=== PATIENT | female | born 1990 | race Caucasian/White ===

== ENCOUNTER → 2016-07-28 | Outpatient (CLI) | payer MEDICARE, OTHER ==
--- NOTE | 2016-07-28 09:41 | CT ---
EXAMINATION TYPE: CT brain wo con DATE OF EXAM: 07/28/2016 9:21 AM COMPARISON: NONE HISTORY: Headache with sivion changes, near syncopal episode CT DLP: 934.[address] of the brain was performed. The ventricles, basal cisterns and sulci overlying the cerebral convexities demonstrate a normal appe arance. There is no evidence for intracranial hemorrhage or sulcal effacement. No mass effects are seen. Osseous calvarium is intact. If symptoms persist consider MRI as clinically warranted. IMPRESSION: 1. No acute intracranial process is seen at this time.
--- NOTE | 2016-08-01 08:16 | EEG ---
DATE OF SERVICE: 07/28/2016 REASON FOR TESTING: Syncope. AGE: 26Y DESCRIPTION OF THE PROCEDURE: This EEG was performed using a 21-channel digital electroencephalograph, following the international 10 to 20 system. DESCRIPTION OF THE RECORDING: From the beginning of the tracing, and with the patient's eyes closed, the background rhythm was mostly consisting of 9 to 10 Hz alpha frequency in the posterior occipital leads. No obvious asymmetry is seen. Photic stimulation was performed with a good driving response seen. No pathological waves were elicited. Hyperventilation was performed with a mild buildup of amplitude seen. Again, no pathological waves were elicited. Occasional movement artifacts are seen. The patient remains awake throughout the tracing. No epileptiform discharges were seen. Her EKG lead showed a regular rate and rhythm. INTERPRETATION: This awake EEG can be considered within normal limits. There was no asymmetry seen. No epileptiform discharges were noticed. The absence of epileptiform discharges does not rule out the diagnosis of epilepsy, therefore, clinical correlation is recommended.
== END | disposition home or self-care (01) ==
LOC: RADCTMAIN 08:23
PROVIDERS: ATTEND Family Medicine
DX: R51 Headache (principal); R55 Syncope and collapse; H53.9 Unspecified visual disturbance
CPT/HCPCS: 70450; 95816

== ENCOUNTER → 2016-08-28 | Outpatient (CLI) | payer MEDICARE, OTHER | END | disposition home or self-care (01) | LOC: LABWHC1 08:21 | PROVIDERS: ATTEND Family Medicine | DX: Z53.9 Procedure and treatment not carried out, unspecified reason (principal) ==

== ENCOUNTER → 2018-09-02 | Outpatient (CLI) | payer MEDICARE, OTHER ==
[2018-09-02 12:39] LABS: HCT 41.5 % (34.0-46.0); HGB 13.3 gm/dL (11.4-16.0); MCH 27.4 pg (25.0-35.0); MCHC 31.9 g/dL (31.0-37.0); MCV 85.9 fL (80.0-100.0); Mean Platelet Volume 6.7; Platelet Count 259 k/uL (150-450); RBC 4.83 m/uL (3.80-5.40); RDW 13.8 % (11.5-15.5); WBC 13.1 k/uL (3.8-10.6)
[2018-09-02 14:46] LABS: Erythrocyte Sedimentation Rate 16 mm/hr (0-20)
[2018-09-02 18:59] LABS: Albumin 4.1 g/dL (3.80-4.90); Albumin/Globulin Ratio 1.58 (1.60-3.17); Anion Gap 4.9 mmol/L (4.00-12.00); C Reactive Protein 1.5 mg/dL (0.0-0.8); Calcium 9.1 mg/dL (8.7-10.3); Carbon Dioxide 28.1 mmol/L (21.6-31.8); Globulin 2.6 g/dL (1.6-3.3); Potassium 4.3 mmol/L (3.5-5.5); Total Bilirubin 0.3 mg/dL (0.3-1.2); Total Protein 6.7 g/dL (6.2-8.2)
[2018-09-02 19:02] LABS: Rheumatoid Factor <4 IU/mL (0-15)
[2018-09-02 19:28] LABS: T4, Free (Free Thyroxine) 0.8 ng/dL (0.80-1.80)
== END ==
LOC: LABWHC1 11:54
PROVIDERS: ATTEND Physician Assistant
DX: M13.0 Polyarthritis, unspecified (principal); M79.10 Myalgia, unspecified site
CPT/HCPCS: 36415; 80053; 82085; 82550; 82607; 84207; 84439; 84443; 84481; 85027; 85652; 86038; 86140; 86431

== ENCOUNTER → 2019-04-15 | Outpatient (CLI) | payer MEDICARE, OTHER ==
--- NOTE | 2019-04-15 13:19 | MR ---
EXAMINATION TYPE: MR lumbar spine wo con DATE OF EXAM: 04/15/2019 COMPARISON: CT abdomen and pelvis March 04, 2014 HISTORY: Lumbago per order. Back pain for 5 years per patient. TECHNIQUE: Multiplanar, multisequence imaging of the lumbar spine is performed without IV contrast. FINDINGS: Sagittal images of the lumbar spine show vertebral body heights and alignment to appear sat isfactory. The intervertebral discs demonstrate normal heights and hydration. No suspicious posterior disc herniation on sagittal images. The conus medullaris is normal in position and signal ending mi d L1 level. The bone marrow signal intensity is within normal limits. No significant spurring. Axial images show no focal disc disease, or facet degenerative change at any lumbar level. There is no spinal canal stenosis, neural foraminal narrowing, or evidence of nerve root compromise. IMPRESSION: Fairly unremarkable study.
== END | disposition home or self-care (01) ==
LOC: RADMRIMAIN 12:43
PROVIDERS: ATTEND Psychiatry & Neurology Neurology
DX: M54.5 Low back pain (principal); Z91.040 Latex allergy status
CPT/HCPCS: 72148

== ENCOUNTER → 2020-11-03 | Outpatient (CLI) | payer MEDICARE, OTHER ==
--- NOTE | 2020-11-03 15:08 | XR ---
Right ankle HISTORY: Trauma and pain 3 views of the right ankle There is soft tissue swelling present. Bone mineralization, joint spaces and alignment are maintained . Proximal fifth metatarsal was not included on the exam. Plantar calcaneal spur is present. impression: Soft tissue swelling, limitations as described. Additional views will be obtained at no a dditional charge to the patient should it be requested.
== END | disposition home or self-care (01) ==
LOC: RADXRMAIN 12:52
PROVIDERS: ATTEND Family Medicine
DX: M79.89 Other specified soft tissue disorders (principal)

== ENCOUNTER → 2021-03-22 | Outpatient (CLI) | payer MEDICARE, OTHER ==
--- NOTE | 2021-03-22 12:42 | MR ---
EXAMINATION TYPE: MR brain wo/w con DATE OF EXAM: 03/22/2021 COMPARISON: CT brain July 28, 2016 HISTORY: Left arm tremor, dizziness, memory loss; rule out tumor. TECHNIQUE: Multiplanar, multisequence images of the brain and brainstem is performed without and with IV contras t, utilizing 9 mL intravenous Gadavist . FINDINGS: Diffusion weighted images demonstrate no evidence of a recent infarct or other diffusion ab normality. There is no extra-axial fluid collection or significant white matter signal abnormality. The ventricular system and cisternal spaces are normal in size and appearance. The brain volume is age appropriate. Midline structures demonstrate normal morphology. The craniocervical junction appears within normal limits. Post contrast images demonstrate no abnormal enhancement. The dural venous sinuses appear pa tent. The visualized sinuses are clear and the globes are intact. IMPRESSION: Unremarkable study.
== END | disposition home or self-care (01) ==
LOC: RADMRIMAIN 11:34
PROVIDERS: ATTEND Psychiatry & Neurology Neurology
DX: C71.9 Malignant neoplasm of brain, unspecified (principal)
CPT/HCPCS: 70553; A9585

== ENCOUNTER → 2021-12-30 | Outpatient (CLI) | payer MEDICARE, OTHER ==
--- NOTE | 2021-12-30 14:38 | NM ---
EXAMINATION TYPE: NM bone scan whole body DATE OF EXAM: 12/30/2021 COMPARISON: NONE HISTORY: Pain Delayed whole-body scanning was performed following the injection of 22.6 mCi Tc 99m MDP. Images acq uired 3 hours post injection. FINDINGS: Abnormal uptake involving the left maxilla likely related to periodontal disease or prior trauma. No additional suspicious abnormal uptake. IMPRESSION: 1. No significant abnormality identified.
== END | disposition home or self-care (01) ==
LOC: RADNMMAIN 10:11
PROVIDERS: ATTEND Family Medicine
DX: G89.4 Chronic pain syndrome (principal); M25.50 Pain in unspecified joint
CPT/HCPCS: 78306; A9503

== ENCOUNTER 2023-09-14 08:52 | Emergency (ER) | payer MEDICARE, OTHER ==
[2023-09-14 09:41] VITALS: PULSE 86; RESP 18; TEMP 98.1
--- NOTE | 2023-09-14 10:10 | ED ---
URI HPI - General Chief Complaint: Upper Respiratory Infection Stated Complaint: Headache, throat pain Time Seen by Provider: 09/14/23 10:10 Source: patient, RN notes reviewed Mode of arrival: ambulatory Limitations: no limitations - History of Present Illness Initial Comments: 33-year-old female with history of asthma presenting with cough x 2 days. P atient is also experiencing sore throat, headaches, nasal congestion, and bodyaches. Denies fever or chills. Patient states the cough is productive and she feels she is wheezing. She was prescribed a steroid by her doctor yesterday which she reports has been helping the cough however she is concerned about pneumonia. - Related Data Home Medications Medication Instructions Recorded Confirmed Pnv,Calcium 72/Iron/Folic Acid 1 tab PO DAILY 10/25/14 05/17/15 [ Plus Tablet] Loratadine [Claritin] 10 mg PO DAILY 04/28/15 05/17/15 Previous Rx's Medication Instructions Recorded Acetaminophen-Codeine 300-30mg 1 tab PO Q4H PRN #30 tablet 05/20/15 [Tylenol #3] Ibuprofen [Motrin] 600 mg PO Q6HR PRN #30 tab 05/20/15 Albuterol Inhaler [Ventolin Hfa 1 - 2 puff INHALATION Q6H PRN #1 09/14/23 Inhaler] each Allergies Allergy/AdvReac Type Severity Reaction Status Date / Time latex Allergy Rash/Hives Verified 09/14/23 09:01 Sulfa (Sulfonamide Allergy Rash/Hives Verified 09/14/23 09:01 Antibiotics) Review of Systems ROS Statement: Those systems with pertinent positive or pertinent negative responses have been documented in the HPI. ROS Other: All systems not noted in ROS Statement are negative. Past Medical History Past Medical History: Asthma, Fibromyalgia Additional Past Medical History / Comment(s): heart murmur History of Any Multi-Drug Resistant Organisms: None Reported Past Surgical History: Cholecystectomy, Hernia Repair Additional Past Surgical History / Comment(s): lt elbow surgery and scope of lt knee Past Anesthesia/Blood Transfusion Reactions: No Reported Reaction Past Psychological History: Anxiety, Depression Smoking Status: Never smoker Past Alcohol Use History: Rare Past Drug Use History: None Reported - Past Family History Mother Family Medical History: Hypertension, Rheumatoid Arthritis (RA), Thyroid Disorder Additional Family Medical History / Comment(s): hypoglysemia General Exam Limitations: no limitations General appearance: alert, in no apparent distress Head exam: Present: atraumatic, normocephalic, normal inspection Eye exam: Present: normal appearance, PERRL, EOMI. Absent: scleral icterus, conjunctival injection, periorbital swelling ENT exam: Present: normal exam, normal oropharynx, mucous membranes moist, TM's normal bilaterally Neck exam: Present: normal inspection. Absent: tenderness, meningismus, lymphadenopathy Respiratory exam: Present: normal lung sounds bilaterally. Absent: respiratory distress, wheezes, rales, rhonchi, stridor Cardiovascular Exam: Present: regular rate, normal rhythm, normal heart sounds. Absent: systolic murmur, diastolic murmur, rubs, gallop, clicks GI/Abdominal exam: Present: soft, normal bowel sounds. Absent: distended, tenderness, guarding, rebound, rigid Neurological exam: Present: alert, oriented X3, CN II-XII intact Psychiatric exam: Present: normal affect, normal mood Skin exam: Present: warm, dry, intact, normal color. Absent: rash Course Vital Signs 09/14/23 08:59 Temperature 98.1 F Pulse Rate 86 Respiratory 18 Rate Blood Pressure 128/74 O2 Sat by Pulse 98 Oximetry Medical Decision Making - Medical Decision Making Was pt. sent in by a medical professional or institution (, PA, DISPLAY SCREEN FABRICATOR, urgent care, hospital, or [place] [facility] facility...) When possible be specific @ -No Did you speak to anyone other than the patient for history (EMS, parent, family, police, friend...)? What history was obtained from this source @ -No Did you review nursing and triage notes (agree or disagree)? Why? @ -I reviewed and agree with nursing and triage notes Were old charts reviewed (outside hosp., previous admission, EMS record, old EKG, old radiological studies, urgent care reports/EKG's, [place] health care facility records)? Report findings @ -No old charts were reviewed Differential Diagnosis (chest pain, altered mental status, abdominal pain women, abdominal pain men, vaginal bleeding, weakness, fever, dyspnea, syncope, headache, dizziness, GI bleed, back pain, seizure, CVA, palpatations, mental health, musculoskeletal)? @ -Viral URI, pneumonia, asthma exacerbation, bronchitis, strep pharyngitis EKG interpreted by me (3pts min.). @ -None X-rays interpreted by me (1pt min.). @ -Chest x-ray reveals no acute process CT interpreted by me (1pt min.). @ -None done U/S interpreted by me (1pt. min.). @ -None done What testing was considered but not performed or refused? (CT, X-rays, U/S, labs)? Why? @ -None What meds were considered but not given or refused? Why? @ -Patient was offered steroid injection however patient declined Did you discuss the management of the patient with other professionals (professionals i.e. , PA, DISPLAY SCREEN FABRICATOR, lab, RT, psych nurse, social media manager, yarn tester, teacher, chief business officer, medical case manager)? Give summary @ -No Was smoking cessation discussed for >3mins.? @ -No Was critical care preformed (if so, how long)? @ -No Were there social determinants of health that impacted care today? How? (Homelessness, low income, unemployed, alcoholism, drug addiction, transportation, low edu. Level, literacy, decrease access to med. care, detention, rehab)? @ -No Was there de-escalation of care discussed even if they declined (Discuss DNR or withdrawal of care, Hospice)? DNR status @ -No What co-morbidities impacted this encounter? (DM, HTN, Smoking, COPD, CAD, Cancer, CVA, ARF, Chemo, Hep., AIDS, mental health diagnosis, sleep apnea, morbid obesity)? @ -Asthma Was patient admitted / discharged? Hospital course, mention meds given and route, prescriptions, significant lab abnormalities, going to OR and other pertinent info. @ -Patient was discharged. Patient was seen and evaluated for cough x 2 days. Patient has history of asthma and is currently on steroids prescribed by PCP. Vitals are stable and physical examination is unremarkable. Flu, COVID, and RSV are negative. Strep is negative. Chest x-ray reveals no acute process. Diagnosis of acute viral upper respiratory infection discussed with patient's. Strict return/alarm symptoms discussed with patient and patient shows understanding and agrees to plan. Patient was offered steroid injection however declines. Advised to continue steroids given by PCP. Supportive care discussed. Patient discharged in stable condition. Case discussed with Dr. Umanzor. Undiagnosed new problem with uncertain prognosis? @ -No Drug Therapy requiring intensive monitoring for toxicity (Heparin, Nitro, Insulin, Cardizem)? @ -No Were any procedures done? @ -No Diagnosis/symptom? @ -Viral upper respiratory infection Acute, or Chronic, or Acute on Chronic? @ -Acute Uncomplicated (without systemic symptoms) or Complicated (systemic symptoms)? @ -Uncomplicated Side effects of treatment? @ -No Exacerbation, Progression, or Severe Exacerbation? @ -No Poses a threat to life or bodily function? How? (Chest pain, [place], [place], pneumonia, PE, COPD, DKA, ARF, appy, cholecystitis, CVA, Diverticulitis, Homicidal, Suicidal, threat to staff... and all critical care pts) @ -Low likelihood - Lab Data Lab Results 09/14/23 09/14/23 Range/Units 09:05 09:05 Influenza Type A (PCR) Not Detected (Not Detectd) Influenza Type B (PCR) Not Detected (Not Detectd) RSV (PCR) Not Detected (Not Detectd) SARS-CoV-2 (PCR) Not Detected (Not Detectd) Group A Strep (PCR) NOT DETECTED (Not Detectd) Disposition Clinical Impression: Viral upper respiratory infection Disposition: HOME SELF-CARE Condition: Stable Instructions (If sedation given, give patient instructions): Upper Respiratory Infection (ED) Additional Instructions: Please return to the Emergency Department if symptoms worsen or any other concerns. Prescriptions: Albuterol Inhaler [Ventolin Hfa Inhaler] 1 - 2 puff INHALATION Q6H PRN #1 each PRN Reason: Shortness Of Breath Is patient prescribed a controlled substance at d/c from ED?: No Referrals: Carl Doyle DO [Primary Care Provider] - 1-2 days Time of Disposition: 10:53
--- NOTE | 2023-09-14 10:45 | XR ---
EXAMINATION TYPE: XR chest 2V DATE OF EXAM: 09/14/2023 COMPARISON: NONE TECHNIQUE: PA and lateral views submitted. HISTORY: Cough FINDINGS: The lungs are clear and there is no pneumothorax, pleural effusion, or focal pneumonia. Heart size normal and no overt failure. Osseous structures demonstrate chronic or congenital upper right rib cag e deformity. Surgical clips gallbladder fossa.. IMPRESSION: 1. No acute process.
[2023-09-14 11:31] VITALS: BP 127/81
== END 2023-09-14 13:57 | disposition home or self-care (01) ==
LOC: EC 08:52
DX: J06.9 Acute upper respiratory infection, unspecified (principal); J45.909 Unspecified asthma, uncomplicated; Z91.040 Latex allergy status; Z88.2 Allergy status to sulfonamides
CPT/HCPCS: 71046; 87636; 87651; 99284